=== PATIENT | male | born 1995 ===

== ENCOUNTER 2016-10-08 20:53 | Emergency (ER) | payer OTHER ==
[~2016-10-08] VITALS: Ht 175.3 cm; Wt 72.2 kg
[2016-10-08 20:53] VITALS: TEMP 36.9; Ht 175.3 cm; Wt 72.2 kg
[2016-10-08] MEDS ORDERED: ALBUT/IPRATROP 3MG/0.5MG NEB 3 ML VIAL ONE (20:57)
[2016-10-08] MEDS ORDERED: ALBUT/IPRATROP 3MG/0.5MG NEB 3 ML VIAL INH STA (20:59)
[2016-10-08] MEDS ORDERED: SODIUM CHLORIDE 0.9% 1000ML 1,000 ML IV STA (20:59)
[2016-10-08 21:04] VITALS: O2SAT 100
[2016-10-08 21:24] LABS: MEAN CORPUSCULAR HEMOGLOBIN 29.6 pg (25-34); MEAN CORPUSCULAR HGB CONC 35.7 g/dl (32-36); PLATELET COUNT 234 K/uL (130-400); RED BLOOD COUNT 4.46 M/uL (4.7-6.1); WHITE BLOOD COUNT 7.97 K/uL (4.8-10.8)
--- NOTE | 2016-10-08 21:26 | DIAGNOSTIC IMAGING REPORT ---
CHEST ONE VIEW PORTABLE CLINICAL HISTORY: EVALUATE ALLERGIC REACTION COMPARISON STUDY: No previous studies for comparison. FINDINGS: The heart is normal in size. There is mild elevation of the interstitium. There is no lobar consolidation. There are no pleural effusions.[ IMPRESSION: Mild elevation of the interstitium, possibly indicating mild edema. There is no lobar consolidation Electronically signed by: Mike Paredes M.D. 10/08/2016 9:25 PM Dictated Date/Time: 10/08/2016 9:24 PM
[2016-10-08 21:40] LABS: BUN/CREATININE RATIO 16.7 (10-20); CALCIUM 7.7 mg/dl (8.5-10.1); POTASSIUM 2.8 mmol/L (3.5-5.1)
[2016-10-08] MEDS ORDERED: POTASSIUM CHLORIDE 10 MEQ / 100ML WTR IV STA (21:53)
[2016-10-08] MEDS ORDERED: POTASSIUM CHLORIDE 10 MEQ TABCR PO STA (21:53)
[2016-10-08 22:58] LABS: COMPLETE YES; LYMPH ABS # 1.86 K/uL (1.2-3.4); LYMPHOCYTE % 23.4 %; NEUTROPHILS % 30.6 %; VARIANT LYM ABS # 3.31 K/uL; VARIANT LYMPHOCYTE % 41.5 %
[2016-10-08] MEDS ORDERED: EPINEPHRINE ADULT AUTO-INJECT 0.3 MG SYR IM STA (23:11)
[2016-10-08] MEDS ORDERED: EPP3/2 IM (23:42)
[2016-10-08] MEDS ORDERED: RANI150T3 PO (23:42)
[2016-10-08] MEDS ORDERED: PRED20TA2 PO (23:42)
[2016-10-09 00:05] VITALS: BP 120/66; PULSE 85; O2SAT 96
--- NOTE | 2016-10-09 17:07 | EMERGENCY ROOM VISIT NOTE ---
History Report prepared by Citlali: Ailyn Reyes Under the Supervision of: Dr. Jesus Leger D.O. First contact with patient: 20:54 Chief Complaint: ALLERGIC REACTION Stated Complaint: ALLERGIC REACTION Nursing Triage Summary: Pt was at [employer] eating at approx. 2000. per pt friend patient had mussels at time. Pt started to feel his tongue swell and short of breath. Pt was clenching down for EMS on arrival. History of Present Illness The patient is a 21 year old male who presents to the Emergency Room via EMS with complaints of an episode of allergic reaction that occurred within the hour. Per EMS, the patient was eating at a local [employer] restaurant with friends. Per friend, the patient last ate a dish with muscles. The patient's tongue started to swell and he was unable to breathe. EMS gave the patient Solu-Medrol , epinephrine IM and IV, and Benadryl. The patient denies chronic medical problems, a history of surgeries. Source of History: patient Onset: within the hour Position: other (global) Quality: other (allergic reaction) Timing: other (episode ) Note: The patient's tongue started to swell and he was unable to breathe. Review of Systems See HPI for pertinent positives & negatives. A total of 10 systems reviewed and were otherwise negative. Past Medical & Surgical Medical Problems: (1) No chronic problems Family History No pertinent family history Social History Smoking Status: Never Smoker Alcohol Use: occasionally Housing Status: lives with roommate Occupation Status: [employer] student Current/Historical Medications Scheduled Epinephrine (Epipen), 0.3 MG IM UD Prednisone (Prednisone Tab), 40 MG PO DAILY Ranitidine Hcl (Zantac), 150 MG PO BID Allergies Coded Allergies: Shellfish (Verified Allergy, Unknown, SHORTNESS OF BREATH, 10/08/16) Physical Exam Vital Signs Date Time Temp Pulse Resp B/P Pulse Ox O2 Delivery O2 Flow Rate FiO2 10/09/16 00:05 85 23 120/66 96 Room Air 10/09/16 00:02 120/66 10/08/16 23:59 115/69 10/08/16 23:53 94 26 97 10/08/16 22:53 97 16 98 10/08/16 21:53 102 16 98 10/08/16 21:37 100 19 115/69 98 Room Air 10/08/16 21:35 115/69 10/08/16 21:15 132/58 10/08/16 21:04 Room Air 10/08/16 21:04 100 Room Air 10/08/16 21:03 98 10/08/16 20:56 141/76 10/08/16 20:53 36.9 99 26 141/76 100 Room Air 10/08/16 20:53 100 Room Air Physical Exam GENERAL: Patient is awake alert, somewhat anxious appearing. EYES: The conjunctivae are clear. The pupils are round and reactive. EARS, NOSE, MOUTH AND THROAT: The nose is without any evidence of any deformity. Mucous membranes are moist, mild uvular hydrops noted, no tongue swelling. NECK: The neck is nontender and supple, no stridor appreciated. RESPIRATORY: Diminished throughout with expiratory wheezing in both upper lung parnell. CARDIOVASCULAR: Tachycardic rate and rhythm noted there no murmurs rubs or gallops normal S1 normal S2 GASTROINTESTINAL: The abdomen is soft. Bowel sounds are present in all quadrants. Abdomen is nontender MUSCULOSKELETAL/EXTREMITIES: There is no evidence of gross deformity full range of motion is noted in the hips and shoulders SKIN: There is no obvious evidence of any rash. There are no petechiae, pallor or cyanosis noted. NEUROLOGIC: Patient is awake alert and oriented x3. Medical Decision & Procedures ER Provider Diagnostic Interpretation: X-ray results as stated below per interpretation by me and the radiologist. CHEST ONE VIEW PORTABLE CLINICAL HISTORY: EVALUATE ALLERGIC REACTION COMPARISON STUDY: No previous studies for comparison. FINDINGS: The heart is normal in size. There is mild elevation of the interstitium. There is no lobar consolidation. There are no pleural effusions.[ IMPRESSION: Mild elevation of the interstitium, possibly indicating mild edema. There is no lobar consolidation Electronically signed by: Mike Paredes M.D. 10/08/2016 9:25 PM Dictated Date/Time: 10/08/2016 9:24 PM Laboratory Results 10/08/16 21:03 Red Blood Count 4.46, Mean Corpuscular Volume 83.0, Mean Corpuscular Hemoglobin 29.6, Mean Corpuscular Hemoglobin Concent 35.7, Mean Platelet Volume 9.0 10/08/16 21:03 Test 10/08/16 21:03 White Blood Count 7.97 K/uL (4.8-10.8) Red Blood Count 4.46 M/uL (4.7-6.1) Hemoglobin 13.2 g/dL (14.0-18.0) Hematocrit 37.0 % (42-52) Mean Corpuscular Volume 83.0 fL (80-100) Mean Corpuscular Hemoglobin 29.6 pg (25-34) Mean Corpuscular Hemoglobin Concent 35.7 g/dl (32-36) Platelet Count 234 K/uL (130-400) Mean Platelet Volume 9.0 fL (7.4-10.4) RDW Standard Deviation 36.8 fL (36.4-46.3) RDW Coefficient of Variation 12.2 % (11.5-14.5) Neutrophils % (Manual) 30.6 % Lymphocytes % (Manual) 23.4 % Variant Lymphocytes % (manual) 41.5 % Monocytes % (Manual) 4.5 % Neutrophils # (Manual) 2.44 K/uL (1.4-6.5) Total Absolute Neutrophils 2.44 K/uL (1.4-6.5) Lymphocytes # (Manual) 1.86 K/uL (1.2-3.4) Absolute Variant Lymphocytes 3.31 K/uL Total Absolute Lymphocytes 5.17 K/uL (1.2-3.4) Monocytes # (Manual) 0.36 K/uL (0.11-0.59) Red Blood Cell Morphology Unremarkable Anion Gap 9.0 mmol/L (3-11) Est Creatinine Clear Calc Drug Dose 115.9 ml/min Estimated GFR () 123.3 Estimated GFR (Non- 106.4 BUN/Creatinine Ratio 16.7 (10-20) Calcium Level 7.7 mg/dl (8.5-10.1) Laboratory results per my review. Medications Administered Medications (Trade) Dose Ordered Sig/Eduardo Route Start Time Stop Time Status Last Admin Dose Admin Sodium Chloride (Nss 1000ml) 1,000 ml @ 999 mls/hr Q1H1M STAT IV 10/08/16 20:59 10/08/16 21:59 DC 10/08/16 21:06 999 MLS/HR Albuterol/ Ipratropium (Duoneb) 3 ml NOW STAT INH 10/08/16 20:59 10/08/16 21:00 DC 10/08/16 21:05 3 ML Potassium Chloride (Kcl 10 Meq / Wtr) 10 meq NOW STAT IV 10/08/16 21:53 10/08/16 21:54 DC 10/08/16 22:08 10 MEQ Potassium Chloride (Klor-Con M10) 10 meq NOW STAT PO 10/08/16 21:53 10/08/16 21:54 DC 10/08/16 22:08 10 MEQ Epinephrine (Epipen) 0.3 mg NOW STAT IM 10/08/16 23:11 10/08/16 23:12 DC 10/09/16 00:03 0.3 MG ED Course 2055: The patient was evaluated in room A1. A complete history and physical examination were performed. 2058: Duoneb 3 ml INH, NSS 1,000 ml @ 999 mls/hr IV 2152: Potassium Chloride 10 meq PO, Potassium Chloride 10 meq IV 5: I reevaluated the patient; he is doing well. 2310: Epipen 0.3 mg IM 0: Upon reevaluation, the patient is doing well. I discussed the results and treatment plan with the patient. He verbalized agreement of the treatment plan. The patient was discharged home. Medical Decision Differential diagnosis: Etiologies such as allergic reaction, anaphylaxis, urticaria, Vasques-Elbert syndrome, toxic epidermal necrolysis, erythema multiforme, cellulitis, as well as others were entertained. Nursing notes reviewed. The patient is a 21-year-old male who presented to the emergency department after an allergic reaction. He was eating a local restaurant. The patient was eating shellfish. He has no definite food allergies that he knows of that he had very severe allergic reaction. He was treated by the prehospital personnel with Benadryl Solu-Medrol IV fluids and epinephrine. Upon arrival to the emergency Department he was somewhat improved. He was treated further with IV fluids and bronchodilator therapy. He was reevaluated multiple times. He was feeling much better on subsequent reevaluation and had no symptoms. I recommended the patient be evaluated by the hospitalist for further inpatient management but the patient did not wish to be admitted to the hospital. He was observed for a while longer and continued to be asymptomatic. He was encouraged to continue all medications as prescribed and avoid any further shellfish were peanuts. He was also encouraged to return to the emergency department immediately if symptoms change worsen or the need arises. He was sent home with a EpiPen. He was also instructed on how to use this medication. Impression Primary Impression: Anaphylaxis Additional Impression: Severe allergic reaction Scribe Attestation The scribe's documentation has been prepared under my direction and personally reviewed by me in its entirety. I confirm that the note above accurately reflects all work, treatment, procedures, and medical decision making performed by me. Departure Information Dispostion Home / Self-Care Prescriptions Ranitidine Hcl (ZANTAC) 150 Mg Tab 150 MG PO BID, #60 TAB Prov: Jesus Leger, DO 10/08/16 Epinephrine (EPIPEN) 0.3 Mg/0.3 Ml Inj 0.3 MG IM UD, #2 BOX Prov: Jesus Leger, DO 10/08/16 Prednisone (Prednisone Tab) 20 Mg Tab 40 MG PO DAILY, #10 TAB Prov: Jesus Leger, DO 10/08/16 Referrals No Doctor, Assigned (PCP) Forms HOME CARE DOCUMENTATION FORM, IMPORTANT VISIT INFORMATION, School Instructions, Work Instructions Patient Instructions ED Anaphylaxis General, First Aid Allergic React, My [facility] Additional Instructions Continue all medications as prescribed. Continue using Benadryl 25 milligrams every 6-8 hours as directed for symptomatic relief. Return to the emergency department immediately if symptoms change worsen or the need arises. Consider using the epinephrine injector if symptoms change worsen or the need arises. Problem Qualifiers Primary Impression: Anaphylaxis Encounter type: initial encounter Qualified Codes: T78.2XXA - Anaphylactic shock, unspecified, initial encounter Additional Impression: Severe allergic reaction Encounter type: initial encounter Qualified Codes: T78.40XA - Allergy, unspecified, initial encounter
== END 2016-10-09 00:26 | disposition home or self-care (01) ==
LOC: C.ED 20:55 → C.EDB 10-09 00:26
DX: T78.2XXA Anaphylactic shock, unspecified, initial encounter (principal); T78.40XA Allergy, unspecified, initial encounter; X58.XXXA Exposure to other specified factors, initial encounter